=== PATIENT | male | born 1965 | race Caucasian/White ===

== ENCOUNTER 2018-05-28 15:46 | Emergency (ER) | payer MEDICAID, SELFPAY ==
[2018-05-28 15:48] VITALS: BP 180/102; PULSE 84; RESP 16; TEMP 36.7; O2SAT 98; BMI 32.5
--- NOTE | 2018-05-28 16:10 | ED.DCSUM_ITS ---
- ER Visit Summary Date of Service: 05/28/18 Chief Complaint: Penile discharge History of Present Illness: The patient is a 53 M white penile discharge over the past 4 days. Patient sexually active with multiple partners, no protection. Denies any pain. Reports nursing in triage for discomfort testicles and back however he denies this on my exam. States he was not comfortable stating to a female nurse at that time. No history of STDs. No allergies. Denies any past medical history. Physical Examination: General: Alert and oriented ?3, no acute distress HEENT: Normocephalic, atraumatic. Moist mucosa membranes Neck: supple, nontender. Cardiovascular: Regular rate and rhythm, no murmurs Respiratory: Normal breath sounds, symmetric, no distress Abdomen: Soft, nontender, nondistended : No testicular tenderness. No ulcers. There is white discharge at the penile orifice. Extremities: Nontender, no edema, pulses intact ?4 Neuro: no focal neurological deficits. Test Results: GC and chlamydia sent. Emergency Department Course and Treatment: Patient nontoxic, GC chlamydia sent. Discussed urethritis with STD concerns with his history. He will be treated with Rocephin and Zithromax. Discussed protection with intercourse. Patient states he already let his partners know of his symptoms. He is given follow-up as an outpatient. Treatment Plan: [] Disposition: Discharge Impression: 1. Urethritis with concerns of STD This note was generated with [employer] dictation software. It may contain incorrect words, spelling, and punctuation that were not noted in review of the chart prior to signing ED Disposition - Plan for ED Patient: Disposition: Home or Assisted Living Chief Complaint: Male Pain/Injury Diagnosis: Urethritis Instructions: ED Urethritis Infec Vs Inflam Male Referrals: NOT,DEFINED [Primary Care Provider] - Lillie Meng MD [STAFF PHYSICIAN] - 5-7 Days Additional Instructions: Treated for STD, rocephin and zithromax.
[2018-05-28] MEDS: Azithromycin 250 MG Tablet 1000 MG PO (16:26)
[2018-05-28] MEDS: Ceftriaxone 500 MG Vial 250 MG IM (16:47)
[2018-05-28 17:04] VITALS: BP 179/99; PULSE 83; RESP 16; O2SAT 95
--- NOTE | 2018-05-28 17:05 | ED.RN ---
REVIEWED D/C INSTRUCTIONS, FOLLOW UP CARE, AND S/S THAT WOULD WARRANT A RETURN TO THE ED WITH PT. PT VERBALIZED AN UNDERSTANDING AND DENIES FURTHER QUESTIONS FOR THIS RN. PT SKIN P/W/D, RESP EVEN AND UNLABORED, PT A&O X 3, NO DISTRESS NOTED. PT AMBULATED OUT OF ED, GAIT STEADY.
[2018-05-28 18:26] LABS: Chlamydia Trachomatis by PCR Negative (Negative); Neisserai gonorrhoeae by PCR Positive (Negative); Probe Check PASS
--- NOTE | 2018-05-28 18:47 | ED.RN ---
PATIENT CALLED AND MADE AWARE THAT HE WAS POSITIVE FOR GONORRHEA.
--- OUTSIDE RECORDS SUMMARY | 2018-07-22 00:26 | XMS RPT_ITS ---
:1965 Author Organization [facility] Care Team Providers Name Role Phone MEDINA, SRIDHAR DO Admitting Unavailable MEDINA, SRIDHAR DO Attending Unavailable MEDINA, SRIDHAR DO Primary Care Unavailable Abbe Inman Attending Unavailable Primay Care Physicia, No Primary Care Unavailable PROBLEMS PROBLEMS No Problem Records FoundPROCEDURES PROCEDURES No Procedure Records FoundRESULTS RESULTS CT/NG [facility] BY PCR Collected: 05/28/2018 Status: F Source: [facility] 4:30 PM REPOSITORY Order Comment: Order Date: 05/28/18 Has pt arrived? Y RESULTS CALLED TO DONNA CASEY OF ED 05/28/18 1828 Katarina Lerma. REPORT READ BACK BY SAME. TYPE CODE TESTS RESULT OUT OF RANGE REFERENCE UNITS LAB L8200.2100 Negative Normal Chlam Negative Trac PCR LAB L8200.2200 Negative High NG by Positive PCR Performed By: #### L8200.2000 #### [facility] [address] [place], [address] EMERGENCY DEPARTMENT Observed: 05/28/2018 Status: F Source: [facility] SUMMARY 4:29 PM REPOSITORY [facility] Medical Records Department [address] [place] [address] Emergency Department Summary 05/28/18 1608 MR#: [id number] Acct: [id number] Name: MANDA VENEGAS Rep #: [id number] : 1965 53 From: Abbe Nassar PCP: Care Physician, No Primary Status: REG ER - ER Visit Summary Date of Service: 05/28/18 Chief Complaint: Penile discharge History of Present Illness: The patient is a 53 M white penile discharge over the past 4 days. Patient sexually active with multiple partners, no protection. Denies any pain. Reports nursing in triage for discomfort testicles and back however he denies this on my exam. States he was not comfortable stating to a female nurse at that time. No history of STDs. No allergies. Denies any past medical history. Physical Examination: General: Alert and oriented 3, no acute distress HEENT: Normocephalic, atraumatic. Moist mucosa membranes Neck: supple, nontender. Cardiovascular: Regular rate and rhythm, no murmurs Respiratory: Normal breath sounds, symmetric, no distress Abdomen: Soft, nontender, nondistended : No testicular tenderness. No ulcers. There is white discharge at the penile orifice. Extremities: Nontender, no edema, pulses intact 4 Neuro: no focal neurological deficits. Test Results: GC and chlamydia sent. Emergency Department Course and Treatment: Patient nontoxic, GC chlamydia sent. Discussed urethritis with STD concerns with his history. He will be treated with Rocephin and Zithromax. Discussed protection with intercourse. Patient states he already let his partners know of his symptoms. He is given follow-up as an outpatient. Treatment Plan: [] Disposition: Discharge Impression: 1. Urethritis with concerns of STD This note was generated with [employer] dictation software. It may contain incorrect words, spelling, and punctuation that were not noted in review of the chart prior to signing ED Disposition - Plan for ED Patient: Disposition: Home or Assisted Living Chief Complaint: Male Pain/Injury Diagnosis: Urethritis Instructions: ED Urethritis Infec Vs Inflam Male Referrals: NOT,DEFINED [Primary Care Provider] - Lillie Meng MD [STAFF PHYSICIAN] - 5-7 Days Additional Instructions: Treated for STD, rocephin and zithromax. What to do if you have Problems For any increased pain, shortness of breath, bleeding, nausea or vomiting, chest pain, or any unexpected problems, contact your Primary Care Provider. Call [facility] ([phone]) or report to the closest Emergency Room. Call 911 if necessary. 05/28/18 4144 <Electronically signed by Abbe Nassar> Date Abbe Nassar Cosigner Signature (If Indicated): Date CC: No Primary Care Physician EMERGENCY REPORT Observed: 10/25/2017 Status: F Source: [facility] 7:15 AM [facility] EM[facility]GENCY ROOM REPORT NAME ACCOUNT SEX AGE ADMIT DISCHARGE PT MED. RECORD# NUMBER DATE DATE TYPE MANDA VENEGAS [id number] Antoni 52 09/23/17 09/23/17 3 [id number] ROOM: ER DATE OF : 1965 DICTATING PHYSICIAN: Sridhar Haney DATE OF SERVICE: 09/23/2017 CHIEF COMPLAINT: Chest pain. HISTORY OF PRESENT ILLNESS: This is a 52-year-old male who was recently released from residential who presents complaining of chest pain that has been present for a few days. Patient reports that the pain is more like a pressure on the left side of his chest, it is associated with shortness of breath and some nausea. It is nonradiating. Nothing seems to make it better or worse. Patient denies any associated palpitations, abdominal pain, vomiting, diaphoresis or lightheadedness. PAST MEDICAL HISTORY: Remarkable for diabetes and hypertension. PAST SURGICAL HISTORY: Patient has no prior surgical history. ALLERGIES: No known drug allergies. SOCIAL HISTORY: Patient lives at home with his family. He smokes a half pack of cigarettes a day. He does not use alcohol or illicit drugs. He is up to date on his immunizations. REVIEW OF SYSTEMS: A 10 point review of systems was obtained and positive for chest pressure, shortness of breath and nausea. It is otherwise negative. PHYSICAL EXAMINATION: Vital Signs: Blood pressure 183/125 on arrival, however, it came down to 150/100 later on, pulse 93, respiratory rate 20, temperature 98.1, pulse oximetry 96% on room air. In general, the patient is alert, awake, and in no acute distress. Head is normocephalic, atraumatic. Pupils are equal, round and reactive to light and accommodation. Extraocular muscles are intact. Mucous membranes are moist. Neck is supple. Trachea is midline. Cardiac exam: Regular rate and rhythm. No murmurs appreciated. Lungs are clear to auscultation bilaterally. Abdomen is soft, nontender, nondistended. No rebound, guarding or rigidity. Extremities demonstrate no edema or gross deformity. Peripheral pulses are intact and equal bilaterally. Patient has normal muscle strength and full range of motion. Motor and sensory are grossly intact. The patient has appropriate mood and behavior. DIAGNOSTIC DATA: EKG was obtained and reveals a rate of 84, normal sinus Page 1 of 2 THEOMANDA Emergency Room Report rhythm. There is a left axis deviation and a right bundle branch block. There are no acute ST changes. Chest x-ray shows on acute pathology. Laboratory work was obtained, which does reveal an elevated D-dimer at 321. The rest of the patient's lab work is unremarkable including negative Troponins. A CT scan of the chest to rule out PE was ordered and is negative for PE. Incidentally, there were some enlarged lymph nodes that were noted, this was communicated to the patient. EMERGENCY DEPARTMENT COURSE AND TREATMENT: Upon arrival, patient is afebrile, nontoxic, and in no acute distress. I suspect the patient's symptoms are musculoskeletal, however, given his risk factors we will do a cardiac work up. I suspect that we can rule out ACS with 1 Troponin. Patient was given Toradol for his pain. All diagnostic results were discussed with him and he expressed understanding. He needs to follow up with the primary care doctors. He was referred to [facility]. Patient was given a prescription for Naprosyn at discharge. Patient is agreeable with the plan. He was discharged in stable condition. DIAGNOSIS: Chest pain. D: Sridhar Haney DO TD: 09/23/17 21:03 JOB #: [id number] Transcribed by: sushil Electronically signed by: DR. SRIHDAR HANEY D.O. 10/25/17 07:15 Page 2 of 2 MANDA VENEGAS Emergency Room Report CT CHEST (PE PROTOCOL) Observed: 09/23/2017 Status: F Source: [facility] 6:[address] [place] [address] Patient: MANDA VENEGAS Phone#: : 1965 Age: 52 Gender: M Pt. Type: ER Account: [id number] Location: 052 Ordering: SRIDHAR GONZALEZMEDINA Exam Date: 09/23/2017/17:55 Family Phys: Charge Code: [id number] Physician: Moffat Order #: [id number] DLP Dose#: PROCEDURE: CT CHEST WITH CONTRAST FOR PE COMPARISON: None. INDICATIONS: Elevated ddimer TECHNIQUE: After obtaining the patient's consent, CT images were obtained with non-ionic intravenous contrast material. Multi-planar images were created to optimize visualization of vascular anatomy with MPR/MIPS and 3D imaging. All CT scans at this facility use dose modulation, iterative reconstruction, and/or weight based dosing when appropriate to reduce radiation dose to as low as reasonably achievable. IV CONTRAST: Omnipaque 350,88ml TOTAL DOSE: 9.30 CTDIvol(mGy) FINDINGS: VASCULATURE: Normal. No visible pulmonary arterial thrombus or attenuation. AORTA: Normal. No aneurysm or dissection. LUNGS: Normal. No visible pulmonary disease. CLEMENT: Normal. No mass or adenopathy. MEDIASTINUM: Normal. No mass or adenopathy. CARDIAC: Normal. No enlargement, pericardial thickening, or significant calcification. PLEURA: Normal. No mass or effusion. CHEST WALL: Normal. No mass or axillary adenopathy. LIMITED ABDOMEN: Prominent lymph nodes are noted adjacent to the diaphragmatic patti of questionable etiology. There is probable left adrenal adenoma. BONES: Normal. No bony lesion or fracture. OTHER: Negative. Continued Report - Page 2 of 2 Patient: MANDA VENEGAS Phone#: : 1965 Age: 52 Gender: M Pt. Type: ER Account: [id number] Location: 052 Ordering: SRIDHAR GONZALEZMEDINA Exam Date: 09/23/2017/17:55 Family Phys: Charge Code: [id number] Physician: Moffat Order #: [id number] DLP Dose#: CONCLUSION: No acute disease. Mildly prominent lymph nodes are present adjacent to the diaphragmatic patti. Dictated by: Isatu Gonzalez MD on 09/25/2017 at 22:45 Approved by: Isatu Gonzalez MD on 09/25/2017 at 22:45 CHEST 1 VIEW Observed: 09/23/2017 Status: F Source: [facility] 4:52 PM [facility] REPOSITORY [place] [address] Patient: MANDA VENEGAS Phone#: : 1965 Age: 52 Gender: M Pt. Type: ER Account: [id number] Location: 052 Ordering: SRIDHAR HANEY Exam Date: 09/23/2017/16:38 Family Phys: Charge Code: [id number] Physician: Moffat Order #: [id number] DLP Dose#: PROCEDURE: X-RAY CHEST 1 VIEW COMPARISON: None. INDICATIONS: Chest pain FINDINGS: LUNGS: Normal. No significant pulmonary parenchymal abnormalities. VASCULATURE: Normal. Unremarkable pulmonary vasculature. CARDIAC: Normal. No cardiac silhouette abnormality or cardiomegaly. MEDIASTINUM: Normal. No visible mass or adenopathy. PLEURA: Normal. No effusion or pleural thickening. BONES: Normal. No fracture or visible bony lesion. OTHER: Negative. CONCLUSION: No acute disease. Dictated by: Isatu Gonzalez MD on 09/23/2017 at 16:57 Approved by: Isatu Gonzalez MD on 09/23/2017 at 16:57 CBC Collected: 09/23/2017 Status: F Source: [facility] 4:35 PM [facility] REPOSITORY TYPE CODE TESTS RESULT OUT OF RANGE REFERENCE UNITS LAB CBC(LOINC) CBC Result Comment: CBC-COMPLETE BLOOD COUNT LAB WBC(LOINC) 4.5 - 10.8 x 10EE3/UL WBC 9.1 LAB RBC(LOINC) 4.50 - x 10EE6/UL 6.00 RBC 5.89 LAB HEMOGLOBIN(LOINC 13.0 - g/dl ) 17.5 High HEMOGLOBIN 18.0 LAB HEMATOCRIT(LOINC 40.0 - % ) 52.0 High HEMATOCRIT 52.7 LAB MCV(LOINC) 81 - 98 fl MCV 90 LAB MCH(LOINC) 27 - 33 pg MCH 31 LAB MCHC(LOINC) 32 - 36 X10 3 MCHC 34 LAB RDW/CV(LOINC) 12.0 - % 15.6 RDW/CV 13.2 LAB PLATELET(LOINC) 150 - 450 x10EE3/UL PLATELET 220 LAB MPV(LOINC) 6.4 - 10.5 fl MPV 8.7 Result Comment: AUTOMATED DIFFERENTIAL LAB NEUT %(LOINC) 46.0 - 76.0 % NEUT % 61.2 LAB LYMPH %(LOINC) 20.0 - 45.0 % LYMPH % 29.8 LAB MONOS %(LOINC) 0.0 - 10.0 % MONOS % 7.5 LAB EO %(LOINC) 0.0 - 7.0 % EO % 0.7 LAB BASO %(LOINC) 0.0 - 2.0 % BASO % 0.8 LAB Lymph #(LOINC) 0.80 - 2.80 x10EE3/U L Lymph # 2.70 LAB Neut #(LOINC) 1.50 - 7.10 x10EE3/U L Neut # 5.60 LAB Posey #(LOINC) 0.20 - 1.00 x10EE3/U L Posey # 0.70 LAB EO #(LOINC) 0.00 - 0.50 x10EE3/U L EO # 0.10 LAB Baso #(LOINC) 0.00 - 0.10 x10EE3/U L Baso # 0.10 LAB MANUAL DIFF(LOINC) MANUAL DIFF N/A LAB MORPHOLOGY(LOINC ) MORPHOLOGY N/A Result Comment: {CD] Performed By: #### [id number] #### [facility],[address] [place] [address] CMP WITH EGFR Collected: 09/23/2017 Status: F Source: [facility] 4:35 PM [facility] REPOSITORY TYPE CODE TESTS RESULT OUT OF RANGE REFERENCE UNITS LAB CMP with eGFR(INC) CMP with eGFR Result Comment: COMPREHENSIVE METABOLIC PANEL LAB SODIUM(LOINC) 136 - 145 mmol/l SODIUM 136 LAB POTASSIUM(LOINC) 3.5 - 5.1 mmol/L POTASSIUM 4.0 LAB CHLORIDE(LOINC) 98 - 107 mmol/L CHLORIDE 102 LAB CO2(LOINC) 21.0 - mmol/L 31.0 CO2 24.6 LAB GLUCOSE(LOINC) 74 - 106 mg/dl GLUCOSE High 173 LAB BUN(LOINC) 6 - 20 mg/dl BUN 13 LAB CREATININE(LOINC) 0.7 - 1.3 mg/dl CREATININE 0.8 LAB AST/SGOT(LOINC) 13 - 39 U/L AST/SGOT High 81 LAB ALK PHOS(LOINC) 38 - 126 U/L ALK PHOS 60 LAB CALCIUM(LOINC) 8.6 - mg/dl 10.2 CALCIUM 9.7 LAB TOTAL 6.4 - 8.3 g/dl PROTEIN(LOINC) TOTAL PROTEIN 7.6 LAB ALBUMIN(LOINC) 3.4 - 4.8 g/dL ALBUMIN 4.2 LAB GLOBULIN(LOINC) 1.5 - 3.8 G/DL GLOBULIN 3.4 LAB A/G RATIO(LOINC) 0.9 - 1.6 A/G RATIO 1.2 LAB TOTAL BILI(LOINC) 0.0 - 1.5 mg/dl TOTAL BILI 0.4 LAB B/C RATIO(LOINC) 0 - 30 ratio B/C RATIO 16 LAB ALT/SGPT(LOINC) 10 - 40 U/L ALT/SGPT High 177 LAB ANION GAP(LOINC) 10 - 20 mmol/L ANION GAP 13 LAB AGE(LOINC) years AGE 52 LAB eGFR(LOINC) 60 - 999 ML/MINUTE eGFR >60 LAB eGFR(AA)(LOINC) 60 - 999 ML/MINUTE eGFR(AA) >60 Result Comment: ACCORDING TO THE NATIONAL KIDNEY DISEASE EDUCATION PROGRAM(NKDE), A NORMAL eGFR IS A VALUE GREATER THAN OR EQUAL TO 60 ML/MIN/1.73 SQ METERS. CHRONIC KIDNEY DISEASE: <60mL/MIN/1.73 SQ METERS KIDNEY FAILURE: <15mL/MIN/1.73 SQ METERS THIS TEST SHOULD ONLY BE USED FOR PATIENTS 18 YEARS OF AGE AND OLDER. Performed By: #### [id number] #### [facility],[address] [place] [address] TROPONIN Collected: 09/23/2017 Status: F Source: [facility] 4:35 PM [facility] REPOSITORY TYPE CODE TESTS RESULT OUT OF REFERENCE UNITS RANGE LAB TROPONIN 0.00 - 0.05 ng/ml I(LOINC) TROPONIN I <0.01 Result Comment: Elevated troponin (above the 99th percentile) usually indicates myocardial ischemia. Results must be interpreted within the clinical setting. 1.Non-ischemic pathology can also cause elevated troponin levels (e.g., acute pulmonary embolism, myocarditis, pericarditis, heart failure, intracranial injury, rhabdomyolisis, sepsis, shock and renal insufficiency). 2.Approximately 1% of healthy adults have elevated troponin levels. 3.Analytical false positive results rarely occur(due to multiple interferences such as heterophile antibodies). Performed By: #### [id number] #### [facility],[address] [place] [address] D-DIMER, QUANTITATIVE Collected: 09/23/2017 Status: F Source: [facility] 4:35 PM [facility] REPOSITORY TYPE CODE TESTS RESULT OUT OF REFERENCE UNITS RANGE LAB D-DIMER, QUANTITATI VE(LOINC) D-DIMER, QUANTITATIVE Result Comment: QUANT D-DIMER LAB D-DIMER 0 - 230 ng/ml QUANT(LOINC) High D-DIMER QUANT 321 Performed By: #### [id number] #### [address] [address] ALLERGIES ALLERGIES DATE TYPE / CODE NAME / CODE REACTION SEVERITY SOURCE 05/28/2018 Drug No Known Unknown [facility] Allergy/[id number](S Allergies/F0019 [facility] NOMED CT) [address](RXNORM) Hospital Repository Miscellaneous No Known Drug Moderate [facility] Allergy/[id number](S Allergies (Severity [facility] NOMED CT) Modifier) Hospital (Qualifier Repository Value) ENCOUNTERS ENCOUNTERS ADMIT/DISCHARGE ACCOUNT ADMITTING ENCOUNTER LOCATION SOURCE NUMBER CLASS 05/28/2018/ [id number] Emergency [address] ing:ED Repository 09/23/2017/ [id number] MEDINA, Emergency [employer] [place] [address] SRIDHAR DO oom: ERBed: B [facility] Repository PAYERS PAYERS ENCOUNTER GUARANTOR PAYER SUBSCRIBER SOURCE 05/28/2018 MANDA JOINERIL353 Primary MANDA MARTELLOB: Dali Centeno Insurance:NICOLE [id number] [address]Jue: [id number] Repository Date:[id number] [address] () [address] [place], [place] [address]GK: 05/28/2018 Secondary NOT GIVENUNK Dali Insurance:SELF PAY [facility]: Effective Repository Date:2018-05-28 09/23/2017 MANDA YAÑEZ: Primary MANDA YAÑEZ: Ravi Peng Insurance:BONNIE [id number] [facility] [place] [address] [address] Repository [address], Number: [address], [place] [address]Laq: [id number] [place] [address] Date:Plan Name:CALEB Doherty)
== END 2018-05-28 17:06 | disposition home or self-care (01) ==
PROVIDERS: Emergency Provider Emergency Medicine
DX: N34.2 Other urethritis (principal); Z72.0 Tobacco use
CPT/HCPCS: 87491; 87591; 96372; 99283

== ENCOUNTER 2018-07-03 17:40 | Observation (INO) | payer MEDICAID, SELFPAY ==
[2018-07-03 17:41] VITALS: BP 130/83; PULSE 96; RESP 16; TEMP 36.3; O2SAT 95; BMI 33.0
--- NOTE | 2018-07-03 20:03 | ED.RN ---
RN CALLED FOR EKG, PULLED OLD EKGS FOR
--- NOTE | 2018-07-03 20:36 | CT_ITS ---
STUDY: CT ABDOMEN AND PELVIS WITH CONTRAST REASON FOR EXAM: Male, 53 years old. Abdominal pain. RADIATION DOSAGE (If Supplied By Facility): CTDIvol = ( 18.65 ) mGy, DLP = ( 1298.22 ) mGycm TECHNIQUE: Transaxial images were obtained from the dome of the diaphragm to the symphysis pubis without oral contrast. 100 ml of Isovue 300 contrast was administered. Sagittal and coronal images were reconstructed. Individualized dose optimization techniques were used for this CT. COMPARISON: None. FINDINGS: The visualized lung bases are unremarkable. The visualized portions of the heart are within normal limits. Normal liver. Normal gallbladder and extrahepatic biliary system. Normal spleen. Normal pancreas. There is a 1.2 cm low-attenuation focus within the left adrenal gland that may reflect an underlying adenoma. There is a nonobstructing 4.3 mm right renal calculus. Normal left kidney. Normal visualized stomach. There are dilated fluid-filled loops of small bowel associated with air-fluid levels and circumferential wall thickening; this appears to involve the distal jejunum and/or proximal ileum. Normal colon. The appendix is visualized and appears normal. There is diffuse atherosclerotic calcification of the abdominal aorta, without a demonstrated aneurysm. Normal inferior vena cava. Normal retroperitoneum. Normal urinary bladder. Normal abdominal wall. Normal osseous structures. CT/Abdomen/Pelvis W IV Cont ONLY IMPRESSION: Small bowel obstruction. Atherosclerosis. Nonobstructing 4.3 mm right renal calculus. Possible left adrenal adenoma. Electronically Signed: Sasha Claire MD at 22:38 EST Tel , Service support ,
--- NOTE | 2018-07-03 20:38 | ED.DCSUM_ITS ---
- ER Visit Summary Date of Service: 07/03/18 Chief Complaint: Sweating, nausea, vomiting and diarrhea History of Present Illness: The patient is a 53 M who presents for 3 days of frequent sweating, vomiting, diarrhea and nausea. Patient states he does use methamphetamine but stopped 3 days ago after he developed symptoms. He denies that these symptoms are the result of withdrawal. Patient is having sweats, chest heaviness, abdominal pain, nausea and vomiting, diarrhea and generalized weakness and fatigue. He denies any fever, urinary symptoms, myalgias or arthralgias. He denies similar symptoms. He lives alone and does not have any known exposures. Patient has history of hepatitis C and borderline diabetes. Patient denies any other substance use. Physical Examination: Vital signs: afebrile, hemodynamically stable, no hypoxia on room air General: well nourished, well developed, in no distress, lying in bed Skin: warm, dry, no rash, no pallor HEENT: normocephalic and atraumatic; PERRL, EOMI, moist mucous membranes Cardiovascular: regular rate and rhythm without murmurs, no peripheral edema, 2+ pulses all distal extremities Respiratory: No increased work of breathing, lungs are clear to auscultation bilaterally, no rales, rhonchi or wheezing Abdominal: Abdomen is soft, tender with normoactive bowel sounds, no guarding or rebound, no masses MSK: Moves all extremities, no deformities, normal strength Neuro: Awake and alert, oriented ?4. No facial droop, sensation and motor function intact and symmetric Test Results: Abnormal Lab Results 07/03/18 07/03/18 07/03/18 19:50 19:50 21:03 WBC Cancelled 13.9 H Corrected WBC Cancelled RBC Cancelled 6.46 H Hgb Cancelled 20.2 H* Hct Cancelled 59.2 H MCV Cancelled 91.6 MCH Cancelled 31.3 MCHC Cancelled 34.1 RDW Cancelled 13.3 RDW Differential Cancelled 44.0 H Plt Count Cancelled 179 MPV Cancelled 10.1 Immature Gran % (Auto) Cancelled 0.500 Neut % (Auto) Cancelled 75.0 H Lymph % (Auto) Cancelled 18.5 L [place] % (Auto) Cancelled 5.6 Eos % (Auto) Cancelled 0.3 Baso % (Auto) Cancelled 0.1 Immature Gran # (Auto) Cancelled Absolute Neuts (auto) Cancelled 10.4 H Absolute Lymphs (auto) Cancelled 2.56 Absolute Monos (auto) Cancelled Total Counted Cancelled Not Reportable Neutrophils % (Manual) Cancelled Band Neutrophils % Cancelled Lymphocytes % (Manual) Cancelled Monocytes % (Manual) Cancelled Eosinophils % (Manual) Cancelled Basophils % (Manual) Cancelled Metamyelocytes % Cancelled Myelocytes % Cancelled Promyelocytes % Cancelled Blast Cells % Cancelled Plasma Cell % (Manual) Cancelled Other Cells % Cancelled Lymphocytes # Cancelled Nucleated RBCs/100 WBC Cancelled Differential Comment Cancelled Diff Path Review Cancelled Hypersegmented Neuts Cancelled Atypical Lymphocytes Cancelled Reactive Lymphocytes Cancelled Smudge Cells Cancelled Eosinophilia # Cancelled Basophilia # Cancelled Toxic Granulation Cancelled Dohle Bodies Cancelled Moe Rods Cancelled Platelet Estimate Cancelled Plt Morphology Comment Cancelled RBC Morphology Cancelled Polychromasia Cancelled Hypochromasia Cancelled Poikilocytosis Cancelled Basophilic Stippling Cancelled Anisocytosis Cancelled Microcytosis Cancelled Macrocytosis Cancelled Spherocytes Cancelled Sickle Cells Cancelled Target Cells Cancelled Tear Drop Cells Cancelled Ovalocytes Cancelled Stomatocytes Cancelled [place] Bodies Cancelled Pierce Cells Cancelled Bite Cells Cancelled Acanthocytes (Spur) Cancelled Rouleaux Cancelled Schistocytes Cancelled Sodium Cancelled Potassium Cancelled Chloride Cancelled Carbon Dioxide Cancelled Anion Gap Cancelled BUN Cancelled Creatinine Cancelled Estim Creat Clear Calc Cancelled Est GFR (MDRD) Af Amer Cancelled Est GFR (MDRD) Non-Af Cancelled BUN/Creatinine Ratio Cancelled Glucose Cancelled Calcium Cancelled Total Bilirubin Cancelled AST Cancelled ALT Cancelled Alkaline Phosphatase Cancelled Total Protein Cancelled Albumin Cancelled Globulin Cancelled Albumin/Globulin Ratio Cancelled Lipase Cancelled 07/03/18 21:03 WBC Corrected WBC RBC Hgb Hct MCV MCH MCHC RDW RDW Differential Plt Count MPV Immature Gran % (Auto) Neut % (Auto) Lymph % (Auto) [place] % (Auto) Eos % (Auto) Baso % (Auto) Immature Gran # (Auto) Absolute Neuts (auto) Absolute Lymphs (auto) Absolute Monos (auto) Total Counted Neutrophils % (Manual) Band Neutrophils % Lymphocytes % (Manual) Monocytes % (Manual) Eosinophils % (Manual) Basophils % (Manual) Metamyelocytes % Myelocytes % Promyelocytes % Blast Cells % Plasma Cell % (Manual) Other Cells % Lymphocytes # Nucleated RBCs/100 WBC Differential Comment Diff Path Review Hypersegmented Neuts Atypical Lymphocytes Reactive Lymphocytes Smudge Cells Eosinophilia # Basophilia # Toxic Granulation Dohle Bodies Moe Rods Platelet Estimate Plt Morphology Comment RBC Morphology Polychromasia Hypochromasia Poikilocytosis Basophilic Stippling Anisocytosis Microcytosis Macrocytosis Spherocytes Sickle Cells Target Cells Tear Drop Cells Ovalocytes Stomatocytes [place] Bodies Pierce Cells Bite Cells Acanthocytes (Spur) Rouleaux Schistocytes Sodium 136 Potassium 4.8 Chloride 106 Carbon Dioxide 19.0 L Anion Gap 11 BUN 23 H Creatinine 1.72 H Estim Creat Clear Calc 48.53 Est GFR (MDRD) Af Amer 53 L Est GFR (MDRD) Non-Af 44 L BUN/Creatinine Ratio 13.4 Glucose 141 H Calcium 10.1 Total Bilirubin 0.60 AST 42 H ALT 105 H Alkaline Phosphatase 89 Total Protein 9.9 H Albumin 4.6 Globulin 5.3 H Albumin/Globulin Ratio 0.9 Lipase 117 Clinical Impression(s) from Imaging Studies Abdomen/Pelvis CT 07/03/18 20:36 IMPRESSION: Small bowel obstruction. Atherosclerosis. Nonobstructing 4.3 mm right renal calculus. Possible left adrenal adenoma. Electronically Signed: Sasha Claire MD at 22:38 EST Tel , Service support , Medications Given Sodium Chloride () 1,000 mls @ 999 mls/hr IV .Q1H1M ONE Stop: 07/04/18 00:04 Last Admin: 07/03/18 23:05 Dose: 999 mls/hr Discontinued Medications Sodium Chloride () 1,000 mls @ 1,000 mls/hr IV .Q1H ONE Stop: 07/03/18 21:34 Last Admin: 07/03/18 21:07 Dose: 1,000 mls/hr Ketorolac Tromethamine (Toradol) 30 mg IV X1 ONE Stop: 07/03/18 20:36 Last Admin: 07/03/18 21:07 Dose: 30 mg Ondansetron HCl (Zofran) 4 mg IV X1 ONE Stop: 07/03/18 20:36 Last Admin: 07/03/18 21:07 Dose: 4 mg Emergency Department Course and Treatment: Patient symptoms are concerning for possible drug withdrawal, however he states that he was using drugs when the symptoms began and he stopped because of his symptoms. Because of patient's age, medical history and his complaints, CT of the abdomen and pelvis was performed. Labs also performed. Urine was ordered but patient has yet to give a urine sample. Patient was given IV fluids, Toradol and Zofran for symptomatic relief. On reevaluation his pain was well controlled and he declined any further medication for symptomatic management. Labs were remarkable for leukocytosis of 13.4, elevated hemoglobin at 20.2, elevated creatinine of 1.7 with no prior for comparison, and mild transaminitis. CT of the abdomen and pelvis was remarkable for a small bowel obstruction. Patient had no vomiting while in the emergency department and thus an NG tube was not placed immediately. Patient will be discussed with surgery for admission. Treatment Plan: [] Disposition: [] Impression: small bowel obstruction This note was generated with [employer] dictation software. It may contain incorrect words, spelling, and punctuation that were not noted in review of the chart prior to signing ED Disposition - Plan for ED Patient: Chief Complaint: General Illness Referrals: Care Physician,No Primary [Primary Care Provider] -
[2018-07-03] MEDS: Ketorolac 30 MG/ML Syringe IV (21:07)
[2018-07-03] MEDS: 0.9% Normal Saline 1,000 ML 1000 ML IV (21:07)
[2018-07-03] MEDS: Ondansetron 4 MG/2 ML Vial IV (21:07)
[2018-07-03 21:08] VITALS: BP 134/106; PULSE 81; RESP 16; O2SAT 95
[2018-07-03 21:19] LABS: Absolute Lymphocyte Count 2.56 X10^3/ul (0.83-4.51); Absolute Neutrophil Count 10.4 X10^3/uL (2.0-7.7); Basophil# 0.02 X10^3/uL; Basophil% 0.1 % (0-1); Eosinophil# 0.04 X10^3/uL; Eosinophils% 0.3 % (0-5); Lymphocyte # 2.56 X10^3/ul (4.0); Lymphocyte % 18.5 % (19-41); Mean Corp Hgb Conc 34.1 g/gl (32-36); Mean Corpuscular Hgb 31.3 pg (27.0-32.0); Mean Corpuscular Volume 91.6 fL (80-94); Mean Platelet Vol. 10.1 fl (6.2-12.0); Monocyte# 0.77 X10^3/uL; Monocyte% 5.6 % (0-10); Neutrophil # 10.41 X10^3/uL (2.7-7.7); Platelet Count 179 K/mm3 (150-450); RBC Distribution Width CV 13.3 % (11.6-14.6); Red Blood Count 6.46 M/mm3 (4.6-6.2); White Blood Count 13.9 K/mm3 (4.4-11.0)
[2018-07-03 21:23] LABS: Hematocrit 59.2 % (40-54); Hemoglobin 20.2 g/dl (13.0-16.5); POSITIVE COUNT NO; POSITIVE DIFFERENTIAL NO; POSITIVE MORPHOLOGY NO
--- NOTE | 2018-07-03 21:25 | ED.RN ---
DR THOMAS NOTIFIED OF HGB RESULTS
[2018-07-03 21:38] LABS: ALB/GLOB Ratio 0.9 RATIO (0.9-2.4); AST(SGOT) 42 U/L (15-37); Alanine Aminotransfer ALT/SGPT 105 U/L (16-61); Albumin, Serum 4.6 g/dL (3.2-5.0); Alkaline Phosphatase 89 U/L (45-117); Anion Gap 11 (5-15); BUN 23 mg/dL (7-18); BUN/Creat Ratio 13.4 RATIO (10-20); Calcium,Total 10.1 mg/dL (8.5-10.1); Chloride 106 mmol/L (98-107); Creatinine, Serum 1.72 mg/dL (0.70-1.30); EST Glomerular Filtration Rate 44 mL/min (>60); Est Glom Filt Rate - Afr Amer 53 mL/min (>60); Estimated Creatinine Clearance 48.53 ml/min; Globulin 5.3 g/dL (2.2-4.2); Glucose 141 mg/dL (74-106); Lipase 117 U/L (73-393); Potassium 4.8 mmol/L (3.5-5.1); Protein, Total 9.9 g/dL (6.4-8.2); Sodium Level 136 mmol/L (136-145)
--- NOTE | 2018-07-03 22:56 | EKG12_ITS ---
Test Reason : SOB Blood Pressure : / mmHG Vent. Rate : 081 BPM Atrial Rate : 081 BPM P-R Int : 172 ms QRS Dur : 092 ms QT Int : 368 ms P-R-T Axes : 055 000 010 degrees QTc Int : 427 ms Normal sinus rhythm Possible Left atrial enlargement Incomplete right bundle branch block Borderline ECG Confirmed by RUBINA RIVERA, MANDA ([id number]), website/blog editor HALI PUCKETT ([id number]) on 07/05/2018 3:29:31 PM Referred By: Confirmed By:MANDA CESPEDES MD
[2018-07-03 23:03] VITALS: BP 142/107; PULSE 79; RESP 14; O2SAT 96
[2018-07-03] MEDS: 0.9% Normal Saline 1,000 ML 999 ML IV (23:05)
[2018-07-04] MEDS: LORazepam 2 MG/ML Syringe 0.5 MG IV (00:20)
[2018-07-04 00:25] VITALS: BP 140/98; PULSE 73; RESP 14; O2SAT 96
--- NOTE | 2018-07-04 00:37 | NURSING ---
Pt up to floor, refusing to have NG place. Equipment at bedside. Will inform Attending.
[2018-07-04 00:52] VITALS: BP 153/89; PULSE 75; RESP 14; TEMP 36.6; O2SAT 94
--- NOTE | 2018-07-04 00:53 | ED.RN ---
NG ATTEMPTED IN LEFT NOSTRIL. NG PASSED INTO NASAL PASSAGE. PT REQUEST IT BE REMOVED AT THAT POINT. REFUSED ANY FURTHER ATTEMPTS TO BE MADE. BLOOD NOTE AFTER ATTEMPT. BLEEDING QUICKLY RESOLVED. ED DR INFORMED. FLOOR RN GIVEN FURTHER REPORT ON FLOOR. NO S/S OF DISTRESS PRIOR TO TRANSFER TO [facility] [place]. Ramesh LANGLEY, RN [id number]
[2018-07-04 01:00] VITALS: BMI 33.0; BMI 33.1
[2018-07-04] MEDS: Lactated Ringers 1,000 ML 150 ML IV ×2 (01:23→08:14)
[2018-07-04 03:41] VITALS: BP 158/98; PULSE 76; RESP 16; TEMP 37.1; O2SAT 98
[2018-07-04 04:04] LABS: Bacteria 0 SEEN /hpf (None Seen); Mucous, Urine 0 SEEN /hpf (<or=2+); Red Blood Cells-Urine 0 SEEN /hpf (0-5); Squamous Epithelial Cells - UA 0 SEEN /hpf (0-5); White Blood Cells 0 SEEN /hpf (0-5)
[2018-07-04 04:10] LABS: Color, Urine Yellow (Yellow); Glucose, Dipstick Normal (Normal); Ketone-Dipstick Negative (Negative); Leukocyte Esterase-Dipstick 25 /ul (Negative); Nitrite-Dipstick Negative (Negative); Occult Blood-Urine 10 /ul (Negative); Protein-Dipstick 30 mg/dl (Negative); Urine Bilirubin Dipstick Negative (Negative); Urine Clarity Clear (Clear); Urine Urobilinogen Normal (Normal)
[2018-07-04 04:27] LABS: Amphetamine Urine VISTA POSITIVE (<1000 ng/mL); Barbiturate Urine VISTA NEGATIVE (< 200 ng/mL); Benzodiazepine Urine VISTA NEGATIVE (< 200 ng/mL); Cocaine Urine VISTA NEGATIVE (< 300 ng/mL); Ecstacy Urine VISTA POSITIVE (< 500 ng/mL); Methadone Urine VISTA NEGATIVE (< 300 ng/mL); PCP Urine VISTA NEGATIVE (< 25 ng/mL); THC Urine VISTA NEGATIVE (< 50 ng/mL); Vista UDS pH Range 6
--- NOTE | 2018-07-04 07:28 | PCM.HP.STD ---
History of Present Illness Date of Admission: 07/04/18 The patient is a 53 year old M presented to the ER due to nausea vomiting diarrhea times 3 days. Patient states he also had crampy abdominal pain with the diarrhea he rated it 8/10 which would also come and go. Patient denies any other sick contacts. Patient does use meth daily however he did stop 3 days ago when this started. And states he occasionally uses we denies any alcohol use. 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 Patient also has a past medical history for reflux was controlled with Zantac. Patient had a CT abdomen pelvis which official read called a possible small bowel obstruction, however there was fluid in the right colon and to me looks like it could have just been gastroenteritis. Patient's AST and ALT were elevated likely due to his hepatitis C and he was dehydrated with creatinine of 1.72 which she did receive 2 L IV fluids in the ER as well as IV fluids on the floor. Patient did refuse an NG in the ER and on the floor, he also refused his x-rays in the morning. Past Medical History Allergies No Known Allergies Allergy (Verified 07/03/18 17:45) Home Medications: Ambulatory Orders Medication Instructions Recorded Ranitidine [Zantac] 100 mg PO DAILY 07/03/18 Surgical History: herniorrhaphy - umb, - - excision of right bronchial cyst Psychiatric History: No pertinent psych hx Lives: Alone Smoking Status: Current every day smoker Alcohol: None Drugs: Marijuana - occ, - - meth-daily - *Family History Maternal History Items: No pertinent history Review of Systems Constitutional: Denies: Anorexia, Fever Eyes: Denies: Blurred vision HEENT: Denies: Difficulty Swallowing Cardiovascular: Denies: Chest Pain Respiratory: Denies: Shortness of Breath Gastrointestinal: Reports: Diarrhea. Denies: Abdominal Pain, Nausea Genitourinary: Denies: Dysuria Musculoskeletal: Denies: Joint Pain Skin: Denies: Rash Neurological: Denies: Balance problems, Confusion Psychiatric: Denies: Anxiety, Depression Endocrine: Denies: Polyuria Hematologic/ Lymphatic: Denies: Easy Bruising, Easy Bleeding VTE Information - Inpt Only VTE Present on Admission: Yes VTE Mechan Device Prophylaxis: SCD's VTE Pharm Prophylaxis ordered?: No Reason prophylaxis not ordered:: Treatment Not Indicated - Physical Exam General: Alert, Oriented x3, Cooperative HEENT: Atraumatic Neck: Supple Lungs: Normal air movement Cardiovascular: Regular rate Abdomen: Soft, Non Tender - no PS, Non-Distended, Passing Flatus Extremities: No clubbing, No cyanosis, No edema Skin: No rashes Musculoskeletal: No Muscle Wasting Neurological: Cranial nerves II-XII grossly intact Psych/Mental Status: Normal Affect Vital Signs Temp Pulse Resp BP Pulse Ox 98.7 F 76 16 158/98 H 98 07/04/18 03:41 07/04/18 03:41 07/04/18 03:41 07/04/18 03:41 07/04/18 03:41 Oxygen Delivery Method Room Air Weight: 223 lb 12.307 oz Body Mass Index (BMI) 33.0 Intake and Output for Last 24 Hours 07/02/18 07/03/18 07/04/18 23:59 23:59 23:59 Intake Total 750 / 750 Output Total 200 / 200 Balance 550 / 550 Laboratory Tests Past 24 Hrs 07/03/18 07/03/18 07/03/18 19:50 19:50 21:03 WBC Cancelled 13.9 H Corrected WBC Cancelled RBC Cancelled 6.46 H Hgb Cancelled 20.2 H* Hct Cancelled 59.2 H MCV Cancelled 91.6 MCH Cancelled 31.3 MCHC Cancelled 34.1 RDW Cancelled 13.3 RDW Differential Cancelled 44.0 H Plt Count Cancelled 179 MPV Cancelled 10.1 Immature Gran % (Auto) Cancelled 0.500 Neut % (Auto) Cancelled 75.0 H Lymph % (Auto) Cancelled 18.5 L [place] % (Auto) Cancelled 5.6 Eos % (Auto) Cancelled 0.3 Baso % (Auto) Cancelled 0.1 Immature Gran # (Auto) Cancelled Absolute Neuts (auto) Cancelled 10.4 H Absolute Lymphs (auto) Cancelled 2.56 Absolute Monos (auto) Cancelled Total Counted Cancelled Not Reportable Neutrophils % (Manual) Cancelled Band Neutrophils % Cancelled Lymphocytes % (Manual) Cancelled Monocytes % (Manual) Cancelled Eosinophils % (Manual) Cancelled Basophils % (Manual) Cancelled Metamyelocytes % Cancelled Myelocytes % Cancelled Promyelocytes % Cancelled Blast Cells % Cancelled Plasma Cell % (Manual) Cancelled Other Cells % Cancelled Lymphocytes # Cancelled Nucleated RBCs/100 WBC Cancelled Differential Comment Cancelled Diff Path Review Cancelled Hypersegmented Neuts Cancelled Atypical Lymphocytes Cancelled Reactive Lymphocytes Cancelled Smudge Cells Cancelled Eosinophilia # Cancelled Basophilia # Cancelled Toxic Granulation Cancelled Dohle Bodies Cancelled Moe Rods Cancelled Platelet Estimate Cancelled Plt Morphology Comment Cancelled RBC Morphology Cancelled Polychromasia Cancelled Hypochromasia Cancelled Poikilocytosis Cancelled Basophilic Stippling Cancelled Anisocytosis Cancelled Microcytosis Cancelled Macrocytosis Cancelled Spherocytes Cancelled Sickle Cells Cancelled Target Cells Cancelled Tear Drop Cells Cancelled Ovalocytes Cancelled Stomatocytes Cancelled [place] Bodies Cancelled Calin Cells Cancelled Bite Cells Cancelled Acanthocytes (Spur) Cancelled Rouleaux Cancelled Schistocytes Cancelled Sodium Cancelled Potassium Cancelled Chloride Cancelled Carbon Dioxide Cancelled Anion Gap Cancelled BUN Cancelled Creatinine Cancelled Estim Creat Clear Calc Cancelled Est GFR (MDRD) Af Amer Cancelled Est GFR (MDRD) Non-Af Cancelled BUN/Creatinine Ratio Cancelled Glucose Cancelled Calcium Cancelled Total Bilirubin Cancelled AST Cancelled ALT Cancelled Alkaline Phosphatase Cancelled Total Protein Cancelled Albumin Cancelled Globulin Cancelled Albumin/Globulin Ratio Cancelled Lipase Cancelled Urine Color Urine Clarity Urine pH Ur Specific [place] Urine Protein Urine Glucose (UA) Urine Ketones Urine Occult Blood Urine Nitrite Urine Bilirubin Urine Urobilinogen Ur Leukocyte Esterase Urine RBC Urine WBC Ur Squamous Epith Cells Urine Bacteria Urine Mucus Urine Opiates Screen Urine Methadone Screen Ur Barbiturates Screen Ur Phencyclidine Scrn Ur Amphetamines Screen U Methamphetamin-MDMA U Benzodiazepines Scrn Urine Cocaine Screen U Cannabinoids Screen Ur Drug Screen Comment 07/03/18 07/04/18 07/04/18 21:03 03:50 03:50 WBC Corrected WBC RBC Hgb Hct MCV MCH MCHC RDW RDW Differential Plt Count MPV Immature Gran % (Auto) Neut % (Auto) Lymph % (Auto) [place] % (Auto) Eos % (Auto) Baso % (Auto) Immature Gran # (Auto) Absolute Neuts (auto) Absolute Lymphs (auto) Absolute Monos (auto) Total Counted Neutrophils % (Manual) Band Neutrophils % Lymphocytes % (Manual) Monocytes % (Manual) Eosinophils % (Manual) Basophils % (Manual) Metamyelocytes % Myelocytes % Promyelocytes % Blast Cells % Plasma Cell % (Manual) Other Cells % Lymphocytes # Nucleated RBCs/100 WBC Differential Comment Diff Path Review Hypersegmented Neuts Atypical Lymphocytes Reactive Lymphocytes Smudge Cells Eosinophilia # Basophilia # Toxic Granulation Dohle Bodies Moe Rods Platelet Estimate Plt Morphology Comment RBC Morphology Polychromasia Hypochromasia Poikilocytosis Basophilic Stippling Anisocytosis Microcytosis Macrocytosis Spherocytes Sickle Cells Target Cells Tear Drop Cells Ovalocytes Stomatocytes [place] Bodies Calin Cells Bite Cells Acanthocytes (Spur) Rouleaux Schistocytes Sodium 136 Potassium 4.8 Chloride 106 Carbon Dioxide 19.0 L Anion Gap 11 BUN 23 H Creatinine 1.72 H Estim Creat Clear Calc 48.53 Est GFR (MDRD) Af Amer 53 L Est GFR (MDRD) Non-Af 44 L BUN/Creatinine Ratio 13.4 Glucose 141 H Calcium 10.1 Total Bilirubin 0.60 AST 42 H ALT 105 H Alkaline Phosphatase 89 Total Protein 9.9 H Albumin 4.6 Globulin 5.3 H Albumin/Globulin Ratio 0.9 Lipase 117 Urine Color Yellow Urine Clarity Clear Urine pH 6.0 Ur Specific [place] 1.010 Urine Protein 30 H Urine Glucose (UA) Normal Urine Ketones Negative Urine Occult Blood 10 H Urine Nitrite Negative Urine Bilirubin Negative Urine Urobilinogen Normal Ur Leukocyte Esterase 25 H Urine RBC 0 SEEN Urine WBC 0 SEEN Ur Squamous Epith Cells 0 SEEN Urine Bacteria 0 SEEN Urine Mucus 0 SEEN Urine Opiates Screen NEGATIVE Urine Methadone Screen NEGATIVE Ur Barbiturates Screen NEGATIVE Ur Phencyclidine Scrn NEGATIVE Ur Amphetamines Screen POSITIVE H U Methamphetamin-MDMA POSITIVE H U Benzodiazepines Scrn NEGATIVE Urine Cocaine Screen NEGATIVE U Cannabinoids Screen NEGATIVE Ur Drug Screen Comment Assessment/Plan 53-year-old male with nausea vomiting, diarrhea, small bowel obstruction verse likely gastroenteritis, substance abuse 1. Okay for sips and chips, will get a small bowel [id number] the small bowel follow-through goes through to the colon which I think it will will give the patient a diet. Patient is currently having diarrhea will check stool cultures as well as C. difficile 2. Labs are pending 3. Substance abuse?meth last used 3 days ago usually uses daily 4. Hepatitis C?chronic diagnosed 20 years ago has not seen a doctor for at least a year since he has been out of skilled nursing 5. GERD patient on Protonix IV Lachelle Zaman M.D. Pager: [phone] [facility] [address] [place] [address], Out[facility] [address], [address] [place] [address] Office: [phone] Code Visit Inpatient E&M: 03079 Init Hosp L2
--- NOTE | 2018-07-04 07:32 | HP.PCM_ITS ---
History of Present Illness Date of Admission: 07/04/18 The patient is a 53 year old M presented to the ER due to nausea vomiting diarrhea times 3 days. Patient states he also had crampy abdominal pain with the diarrhea he rated it 8/10 which would also come and go. Patient denies any other sick contacts. Patient does use meth daily however he did stop 3 days ago when this started. And states he occasionally uses we denies any alcohol use. 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 Patient also has a past medical history for reflux was controlled with Zantac. Patient had a CT abdomen pelvis which official read called a possible small bowel obstruction, however there was fluid in the right colon and to me looks like it could have just been gastroenteritis. Patient's AST and ALT were elevated likely due to his hepatitis C and he was dehydrated with creatinine of 1.72 which she did receive 2 L IV fluids in the ER as well as IV fluids on the floor. Patient did refuse an NG in the ER and on the floor, he also refused his x-rays in the morning. Past Medical History Allergies No Known Allergies Allergy (Verified 07/03/18 17:45) Home Medications: Ambulatory Orders Medication Instructions Recorded Ranitidine [Zantac] 100 mg PO DAILY 07/03/18 Surgical History: herniorrhaphy - umb, - - excision of right bronchial cyst Psychiatric History: No pertinent psych hx Lives: Alone Smoking Status: Current every day smoker Alcohol: None Drugs: Marijuana - occ, - - meth-daily - *Family History Maternal History Items: No pertinent history Review of Systems Constitutional: Denies: Anorexia, Fever Eyes: Denies: Blurred vision HEENT: Denies: Difficulty Swallowing Cardiovascular: Denies: Chest Pain Respiratory: Denies: Shortness of Breath Gastrointestinal: Reports: Diarrhea. Denies: Abdominal Pain, Nausea Genitourinary: Denies: Dysuria Musculoskeletal: Denies: Joint Pain Skin: Denies: Rash Neurological: Denies: Balance problems, Confusion Psychiatric: Denies: Anxiety, Depression Endocrine: Denies: Polyuria Hematologic/ Lymphatic: Denies: Easy Bruising, Easy Bleeding VTE Information - Inpt Only VTE Present on Admission: Yes VTE Mechan Device Prophylaxis: SCD's VTE Pharm Prophylaxis ordered?: No Reason prophylaxis not ordered:: Treatment Not Indicated - Physical Exam General: Alert, Oriented x3, Cooperative HEENT: Atraumatic Neck: Supple Lungs: Normal air movement Cardiovascular: Regular rate Abdomen: Soft, Non Tender - no PS, Non-Distended, Passing Flatus Extremities: No clubbing, No cyanosis, No edema Skin: No rashes Musculoskeletal: No Muscle Wasting Neurological: Cranial nerves II-XII grossly intact Psych/Mental Status: Normal Affect Vital Signs Temp Pulse Resp BP Pulse Ox 98.7 F 76 16 158/98 H 98 07/04/18 03:41 07/04/18 03:41 07/04/18 03:41 07/04/18 03:41 07/04/18 03:41 Oxygen Delivery Method Room Air Weight: 223 lb 12.307 oz Body Mass Index (BMI) 33.0 Intake and Output for Last 24 Hours 07/02/18 07/03/18 07/04/18 23:59 23:59 23:59 Intake Total 750 / 750 Output Total 200 / 200 Balance 550 / 550 Laboratory Tests Past 24 Hrs 07/03/18 07/03/18 07/03/18 19:50 19:50 21:03 WBC Cancelled 13.9 H Corrected WBC Cancelled RBC Cancelled 6.46 H Hgb Cancelled 20.2 H* Hct Cancelled 59.2 H MCV Cancelled 91.6 MCH Cancelled 31.3 MCHC Cancelled 34.1 RDW Cancelled 13.3 RDW Differential Cancelled 44.0 H Plt Count Cancelled 179 MPV Cancelled 10.1 Immature Gran % (Auto) Cancelled 0.500 Neut % (Auto) Cancelled 75.0 H Lymph % (Auto) Cancelled 18.5 L Marshall % (Auto) Cancelled 5.6 Eos % (Auto) Cancelled 0.3 Baso % (Auto) Cancelled 0.1 Immature Gran # (Auto) Cancelled Absolute Neuts (auto) Cancelled 10.4 H Absolute Lymphs (auto) Cancelled 2.56 Absolute Monos (auto) Cancelled Total Counted Cancelled Not Reportable Neutrophils % (Manual) Cancelled Band Neutrophils % Cancelled Lymphocytes % (Manual) Cancelled Monocytes % (Manual) Cancelled Eosinophils % (Manual) Cancelled Basophils % (Manual) Cancelled Metamyelocytes % Cancelled Myelocytes % Cancelled Promyelocytes % Cancelled Blast Cells % Cancelled Plasma Cell % (Manual) Cancelled Other Cells % Cancelled Lymphocytes # Cancelled Nucleated RBCs/100 WBC Cancelled Differential Comment Cancelled Diff Path Review Cancelled Hypersegmented Neuts Cancelled Atypical Lymphocytes Cancelled Reactive Lymphocytes Cancelled Smudge Cells Cancelled Eosinophilia # Cancelled Basophilia # Cancelled Toxic Granulation Cancelled Dohle Bodies Cancelled Moe Rods Cancelled Platelet Estimate Cancelled Plt Morphology Comment Cancelled RBC Morphology Cancelled Polychromasia Cancelled Hypochromasia Cancelled Poikilocytosis Cancelled Basophilic Stippling Cancelled Anisocytosis Cancelled Microcytosis Cancelled Macrocytosis Cancelled Spherocytes Cancelled Sickle Cells Cancelled Target Cells Cancelled Tear Drop Cells Cancelled Ovalocytes Cancelled Stomatocytes Cancelled [place] Bodies Cancelled Calin Cells Cancelled Bite Cells Cancelled Acanthocytes (Spur) Cancelled Rouleaux Cancelled Schistocytes Cancelled Sodium Cancelled Potassium Cancelled Chloride Cancelled Carbon Dioxide Cancelled Anion Gap Cancelled BUN Cancelled Creatinine Cancelled Estim Creat Clear Calc Cancelled Est GFR (MDRD) Af Amer Cancelled Est GFR (MDRD) Non-Af Cancelled BUN/Creatinine Ratio Cancelled Glucose Cancelled Calcium Cancelled Total Bilirubin Cancelled AST Cancelled ALT Cancelled Alkaline Phosphatase Cancelled Total Protein Cancelled Albumin Cancelled Globulin Cancelled Albumin/Globulin Ratio Cancelled Lipase Cancelled Urine Color Urine Clarity Urine pH Ur Specific [place] Urine Protein Urine Glucose (UA) Urine Ketones Urine Occult Blood Urine Nitrite Urine Bilirubin Urine Urobilinogen Ur Leukocyte Esterase Urine RBC Urine WBC Ur Squamous Epith Cells Urine Bacteria Urine Mucus Urine Opiates Screen Urine Methadone Screen Ur Barbiturates Screen Ur Phencyclidine Scrn Ur Amphetamines Screen U Methamphetamin-MDMA U Benzodiazepines Scrn Urine Cocaine Screen U Cannabinoids Screen Ur Drug Screen Comment 07/03/18 07/04/18 07/04/18 21:03 03:50 03:50 WBC Corrected WBC RBC Hgb Hct MCV MCH MCHC RDW RDW Differential Plt Count MPV Immature Gran % (Auto) Neut % (Auto) Lymph % (Auto) Marshall % (Auto) Eos % (Auto) Baso % (Auto) Immature Gran # (Auto) Absolute Neuts (auto) Absolute Lymphs (auto) Absolute Monos (auto) Total Counted Neutrophils % (Manual) Band Neutrophils % Lymphocytes % (Manual) Monocytes % (Manual) Eosinophils % (Manual) Basophils % (Manual) Metamyelocytes % Myelocytes % Promyelocytes % Blast Cells % Plasma Cell % (Manual) Other Cells % Lymphocytes # Nucleated RBCs/100 WBC Differential Comment Diff Path Review Hypersegmented Neuts Atypical Lymphocytes Reactive Lymphocytes Smudge Cells Eosinophilia # Basophilia # Toxic Granulation Dohle Bodies Moe Rods Platelet Estimate Plt Morphology Comment RBC Morphology Polychromasia Hypochromasia Poikilocytosis Basophilic Stippling Anisocytosis Microcytosis Macrocytosis Spherocytes Sickle Cells Target Cells Tear Drop Cells Ovalocytes Stomatocytes [place] Bodies Calin Cells Bite Cells Acanthocytes (Spur) Rouleaux Schistocytes Sodium 136 Potassium 4.8 Chloride 106 Carbon Dioxide 19.0 L Anion Gap 11 BUN 23 H Creatinine 1.72 H Estim Creat Clear Calc 48.53 Est GFR (MDRD) Af Amer 53 L Est GFR (MDRD) Non-Af 44 L BUN/Creatinine Ratio 13.4 Glucose 141 H Calcium 10.1 Total Bilirubin 0.60 AST 42 H ALT 105 H Alkaline Phosphatase 89 Total Protein 9.9 H Albumin 4.6 Globulin 5.3 H Albumin/Globulin Ratio 0.9 Lipase 117 Urine Color Yellow Urine Clarity Clear Urine pH 6.0 Ur Specific [place] 1.010 Urine Protein 30 H Urine Glucose (UA) Normal Urine Ketones Negative Urine Occult Blood 10 H Urine Nitrite Negative Urine Bilirubin Negative Urine Urobilinogen Normal Ur Leukocyte Esterase 25 H Urine RBC 0 SEEN Urine WBC 0 SEEN Ur Squamous Epith Cells 0 SEEN Urine Bacteria 0 SEEN Urine Mucus 0 SEEN Urine Opiates Screen NEGATIVE Urine Methadone Screen NEGATIVE Ur Barbiturates Screen NEGATIVE Ur Phencyclidine Scrn NEGATIVE Ur Amphetamines Screen POSITIVE H U Methamphetamin-MDMA POSITIVE H U Benzodiazepines Scrn NEGATIVE Urine Cocaine Screen NEGATIVE U Cannabinoids Screen NEGATIVE Ur Drug Screen Comment Assessment/Plan 53-year-old male with nausea vomiting, diarrhea, small bowel obstruction verse likely gastroenteritis, substance abuse 1. Okay for sips and chips, will get a small bowel [id number] the small bowel follow-through goes through to the colon which I think it will will give the patient a diet. Patient is currently having diarrhea will check stool cultures as well as C. difficile 2. Labs are pending 3. Substance abuse?meth last used 3 days ago usually uses daily 4. Hepatitis C?chronic diagnosed 20 years ago has not seen a doctor for at least a year since he has been out of long term 5. GERD patient on Protonix IV Lachelle Zaman M.D. Pager: [phone] [facility] [address] [place] [address], Outpatient [place], [address] [place] [address] Office: [phone] Code Visit Inpatient E&M: [id number] Init Hosp L2
[2018-07-04 08:15] VITALS: BP 161/99; PULSE 73; RESP 18; TEMP 36.8; O2SAT 96
[2018-07-04 08:22] VITALS: BP 161/99; PULSE 73
[2018-07-04] MEDS: hydrALAZINE 20 MG/ML Vial IV (08:22)
[2018-07-04 08:57] LABS: Absolute Lymphocyte Count 2.42 X10^3/ul (0.83-4.51); Absolute Neutrophil Count 7.6 X10^3/uL (2.0-7.7); Basophil# 0.02 X10^3/uL; Basophil% 0.2 % (0-1); Eosinophil# 0.13 X10^3/uL; Eosinophils% 1.2 % (0-5); Hematocrit 51.7 % (40-54); Hemoglobin 17.1 g/dl (13.0-16.5); Lymphocyte # 2.42 X10^3/ul (4.0); Lymphocyte % 21.8 % (19-41); Mean Corp Hgb Conc 33.1 g/gl (32-36); Mean Corpuscular Hgb 30.5 pg (27.0-32.0); Mean Corpuscular Volume 92.2 fL (80-94); Mean Platelet Vol. 9.8 fl (6.2-12.0); Monocyte# 0.91 X10^3/uL; Monocyte% 8.2 % (0-10); Neutrophil # 7.55 X10^3/uL (2.7-7.7); Neutrophil % 68.1 % (47-70); POSITIVE COUNT NO; POSITIVE DIFFERENTIAL NO; POSITIVE MORPHOLOGY NO; Platelet Count 177 K/mm3 (150-450); RBC Distribution Width CV 13.3 % (11.6-14.6); RBC Distribution Width SD 44.7 fl (35.1-43.9); Red Blood Count 5.61 M/mm3 (4.6-6.2); White Blood Count 11.1 K/mm3 (4.4-11.0)
[2018-07-04 09:10] LABS: AST(SGOT) 34 U/L (15-37); Alanine Aminotransfer ALT/SGPT 78 U/L (16-61); Albumin, Serum 3.4 g/dL (3.2-5.0); Alkaline Phosphatase 64 U/L (45-117); Anion Gap 8 (5-15); BUN 24 mg/dL (7-18); BUN/Creat Ratio 20.3 RATIO (10-20); Bilirubin, Direct 0.21 mg/dL (0.00-0.30); Calcium,Total 8.6 mg/dL (8.5-10.1); Chloride 110 mmol/L (98-107); Creatinine, Serum 1.18 mg/dL (0.70-1.30); EST Glomerular Filtration Rate 68 mL/min (>60); Est Glom Filt Rate - Afr Amer 82 mL/min (>60); Estimated Creatinine Clearance 70.73 ml/min; Globulin 3.9 g/dL (2.2-4.2); Glucose 113 mg/dL (74-106); Potassium 4.3 mmol/L (3.5-5.1); Protein, Total 7.3 g/dL (6.4-8.2); Sodium Level 140 mmol/L (136-145)
--- NOTE | 2018-07-04 09:45 | RAD_ITS ---
STUDY: GASTROGRAFIN SMALL BOWEL FOLLOW-THROUGH EXAMINATION. REASON FOR EXAM: Male, 53 years old. Small bowel obstruction. TECHNIQUE: The patient ingested a Gastrografin. A small bowel follow-through examination was performed. COMPARISON: None. FINDINGS: On the ground transportation operator film, minimal dilatation of the small bowel loops. Gas is seen within the colon. The patient ingested Gastrografin. There is no evidence of bowel obstruction. Mild degree of small bowel dilatation in the mid abdomen. There is finding suggestive of mild degree of the edema of the valves conniventes. The terminal ileum is unremarkable. RAD/Small Bowel Series Only IMPRESSION: Findings suggestive of mild dilatation of central small bowel loops with submucosal edema. There is no evidence of bowel obstruction at this time. Electronically Signed: Mustapha Soriano MD at 15:39 EST Tel [phone], Service support ,
[2018-07-04] MEDS: 0.9% NaCl Peripheral Flush Adult/Peds IV (12:37)
[2018-07-04 12:43] VITALS: BP 165/91; PULSE 75; RESP 16; TEMP 36.8; O2SAT 97
--- NOTE | 2018-07-04 12:54 | DCINST_ITS ---
Discharge Diet: Light diet - advance as tolerated Discharge Activity: Return to Normal Activity Allergies/Adverse Reactions: Allergies No Known Allergies Allergy (Verified 07/03/18 17:45) Medications to take at Discharge Ranitidine [Zantac] 100 mg PO DAILY 07/03/18 Primary Care Physician: Care Physician,No Primary [Primary Care Provider] - Please follow up with your Primary Care Physician in: Please establish PCP and arrange for f/u for your hepatitis C Test Results: Test results from this visit will be discussed in further detail at your follow- up appointment, if applicable. Proposed Discharge Date: 07/04/18
== END 2018-07-04 14:27 | disposition home or self-care (01) ==
LOC: ED 20:05 → MS3 07-04 00:15
PROVIDERS: Admitting Provider Surgery; Emergency Provider Emergency Medicine; Visit Provider Surgery
DX: R19.7 Diarrhea, unspecified (principal); K21.9 Gastro-esophageal reflux disease without esophagitis; B18.2 Chronic viral hepatitis C; R73.09 Other abnormal glucose; Z79.899 Other long term (current) drug therapy; E86.0 Dehydration; R11.2 Nausea with vomiting, unspecified; F17.200 Nicotine dependence, unspecified, uncomplicated; F15.10 Other stimulant abuse, uncomplicated
CPT/HCPCS: 36415; 74177; 74250; 80048; 80053; 80076; 80307; 81001; 83690; 85025; 87493; 87506; 93005; 96361; 96365; 96366; 96375; 99218; 99285; 99406; J7030; J7120; Q9967; 90686; A4216; G0378; J2405

== ENCOUNTER 2020-02-15 17:04 | Emergency (ER) | payer OTHER, SELFPAY ==
[2018-07-04 01:00] VITALS: BMI 33.0
[2020-02-15 17:05] VITALS: BP 154/96; PULSE 83; RESP 18; TEMP 36.6; O2SAT 96; BMI 25.9
--- NOTE | 2020-02-15 17:22 | ED.VIS.GEN ---
History of Present Illness Informant: Patient Onset: Today Context: Sudden Onset Timing: Continuous Quality: Nosebleed Location: Right nostril Current Severity: Severe Maximum Severity: Severe Worsened by: Nothing Relieved by: Nothing Associated Symptoms: Denies Narrative: 54-year-old male history of coronary artery disease currently on Plavix presents to the emergency department with a nosebleed. Started about an hour ago. Unable to get this stop with manual pressure. Since he has been on Plavix about a year ago he is had for 5 nosebleeds that are required nasal packing. He is not on any anticoagulants. He has not suffered trauma. He has no other symptoms of bleeding. He does not feel lightheaded or dizzy. Prior similar symptoms: Yes Recent Illness/Hospitalization: No <Mika Briseno - Last Filed: 02/15/20 17:24> <Юлия Brewster - Last Filed: 02/16/20 00:52> Chief Complaint: Nosebleed Past Medical History Prior records reviewed: Yes Past Medical History: - - Coronary artery disease hypertension hyperlipidemia COPD hepatitis C Surgical History: herniorrhaphy - umb, - - excision of right bronchial cyst, cardiac stent Lives: With Family Smoking Status: Current every day smoker Alcohol: Occasional Drugs: - - Meth - Family History Maternal Family History: Reports: No pertinent history <Mika Briseno - Last Filed: 02/15/20 17:24> <Юлия Brewster - Last Filed: 02/16/20 00:52> - Allergies and Home Meds Allergies/Adverse Reactions: Allergies No Known Allergies Allergy (Verified 02/15/20 17:06) Primary Care Physician: Gudreep Kim MD [STAFF PHYSICIAN] - 02/18/20 Review of Systems All systems negative except as indicated General: Denies: Chills, Fever, Sweats Eyes: Denies: Visual changes - bilaterally, Diplopia ENT: Reports: - - Epistaxis. Denies: Rhinorrhea, Sore throat Cardiovascular: Denies: Chest pain, Palpitations Respiratory: Denies: Dyspnea, Cough, Dyspnea on exertion Gastrointestinal: Denies: Abdominal pain, Nausea, Vomiting, Diarrhea, Melena, Hematochezia Genitourinary: Denies: Dysuria, Hematuria, Frequency Musculoskeletal: Denies: Back pain, Extremity Pain Skin: Denies: Rash, Wounds Neurological: Denies: Headache, Weakness, Numbness <Mika Briseno - Last Filed: 02/15/20 17:24> Physical Exam Vital Signs/Narrative: Vital Signs Temp Pulse Resp BP Pulse Ox 02/15/20 17:05 97.9 F 83 18 154/96 H 96 Inital Vital Signs reviewed: Yes General: Well nourished, Well developed, No Acute Distress Head: Normocephalic, Atraumatic Eyes: Perrl, EOMI ENT: Moist mucous membranes, No rhinorrhea, - - Active bleeding from right anterior naris. No clots are noted. No posterior bleeding. No nasal septal hematoma. No bleeding from the left nostril. Normal inspection of his nose. No facial swelling bruising signs of trauma or tenderness. Normal inspection posterior oropharynx Neck: Supple, Nontender Cardiovascular: Regular rate, Regular rhythm, No murmurs Respiratory: No distress, CTA bilaterally, Chest nontender Abdomen: Soft, Nontender, Nondistended, Normal bowel sounds Back: Nontender, Normal Inspection Extremities: Nontender, No edema Skin: Normal color, No rash Neurological: Alert, Oriented x3, Cranial nerves II-XII grossly intact, Normal Strength, Normal Sensation Psychological: Normal affect, Normal Mood <Mika Briseno - Last Filed: 02/15/20 17:24> Diagnostic/Tx/Re-eval - Medical Decision Making On exam the patient has anterior bleeding from the right nostril. I ordered Afrin to soak it on a cottonball to place it up his nostril however patient refused. he states that does not work for him. he states that he only has success if his nose gets packed therefore after I asked him to blow his nose of all the clots I placed a 5.5 inch Rhino Rocket and inflated the balloon up into his nose and he was monitored. No further bleeding. He will be discharged with ENT follow-up for removal in 48 hours <Mika Briseno Last Filed: 02/15/20 17:24> - Medical Decision Making I have personally performed a [id number] assessment of the patient and have reviewed the PA note. My boyd findings include 54-year-old male presenting with nosebleed. This started just prior to arrival. Patient has a history of multiple nosebleeds in the past requiring packing. He has anterior bleeding from the right nares. Rhino Rocket was placed. Patient tolerated this well. He will follow-up with ENT. Advised return to ED for worsening complaints. <Юлия Brewster - Last Filed: 02/16/20 00:52> ED Disposition <Mika Briseno - Last Filed: 02/15/20 17:24> <Юлия Brewster - Last Filed: 02/16/20 00:52> - Plan for ED Patient: Disposition: Home or Assisted Living Diagnosis: Epistaxis, Hepatitis C, CAD (coronary artery disease) Instructions: ED Epistaxis Ch Referrals: Gurdeep Kim MD [STAFF PHYSICIAN] - 02/18/20
[2020-02-15 18:02] VITALS: BP 159/104; PULSE 76; RESP 18
== END 2020-02-15 18:03 | disposition home or self-care (01) ==
PROVIDERS: Emergency Provider Emergency Medicine; PCP Registered Nurse
DX: R04.0 Epistaxis (principal); B19.20 Unspecified viral hepatitis C without hepatic coma; I25.10 Atherosclerotic heart disease of native coronary artery without angina pectoris; E78.5 Hyperlipidemia, unspecified; I10 Essential (primary) hypertension; J44.9 Chronic obstructive pulmonary disease, unspecified; F17.200 Nicotine dependence, unspecified, uncomplicated; Z79.02 Long term (current) use of antithrombotics/antiplatelets; Z95.5 Presence of coronary angioplasty implant and graft
CPT/HCPCS: 30901; 99282